=== PATIENT | female | born 1940 | race Caucasian/White ===

== ENCOUNTER 2020-08-20 07:19 | Day surgery (SDC) | payer MEDICARE ==
[2020-08-20] MEDS ORDERED: fentaNYL 100 MCG/2 ML SDV ONE (08:21)
[2020-08-20] MEDS ORDERED: Propofol 200 MG/20 ML SDV ONE (08:21)
[2020-08-20] MEDS ORDERED: Dextrose 5%-Lactated Ringers 1,000 ML IV SCH (10:00)
--- NOTE | 2020-08-24 13:01 | OR ---
DATE OF PROCEDURE: 08/20/2020 SURGEON: Carlos Manuel Saba MD PREOPERATIVE DIAGNOSIS: History of colon polyps. POSTOPERATIVE DIAGNOSIS: Normal colonoscopic examination with no recurrent polyps. OPERATIVE PROCEDURE: Screening colonoscopy. ANESTHESIA: IV sedation. INDICATIONS FOR PROCEDURE: This is an 80-year-old female with history of previous colon polyps, presenting for followup colonoscopy. Plan is to proceed with a colonoscopy with biopsies and/or polypectomy as indicated. Potential risks including bleeding and perforation were discussed, and the patient wishes to proceed. DETAILS OF PROCEDURE: The patient was taken to the operating room, placed in a left lateral decubitus position. IV sedation was administered, after which the initial digital rectal exam was performed and was unremarkable. Colonoscope was then passed to the level of the rectum with retroflexion revealing uncomplicated hemorrhoidal columns. Scope was eventually passed to the level of the cecum. The patient had a good prep with only small amount of liquid stool present. To that level, no abnormalities were noted. Specifically, no diverticula, no areas of colitis. No polyps or other signs of neoplasia were seen. Scope was then withdrawn with the above findings reconfirmed and the procedure was concluded. The patient was taken to the recovery room in satisfactory condition. Recommendation in this case at age 80 would be to repeat the colonoscopy if the specific indications arise over time. Carlos Manuel Saba MD /[id number]
== END 2020-08-20 10:35 | disposition home or self-care (01) ==
LOC: JP.SDS 07:19
PROVIDERS: ATTEND Surgery
DX: Z12.11 Encounter for screening for malignant neoplasm of colon (principal); K64.9 Unspecified hemorrhoids; I10 Essential (primary) hypertension; K21.9 Gastro-esophageal reflux disease without esophagitis; E78.00 Pure hypercholesterolemia, unspecified; Z86.010 Personal history of colon polyps; Z87.19 Personal history of other diseases of the digestive system
CPT/HCPCS: J2704; J3010; J7121